=== PATIENT | male | born 1970 | race Caucasian/White ===

== ENCOUNTER 2021-12-22 11:05 | Emergency (ER) | payer OTHER ==
[2021-12-22 11:53] LABS: RED BLOOD COUNT 4.59 M/UL (4.20-5.50); WHITE BLOOD COUNT 8.3 K/UL (4.5-11.0)
[2021-12-22 12:43] LABS: BUN/CREATININE RATIO 8 (0-10)
== END 2021-12-22 15:38 | disposition home or self-care (01) ==
LOC: ER1 11:05
PROVIDERS: Emergency Medicine
DX: R07.9 Chest pain, unspecified (principal); Z01.812 Encounter for preprocedural laboratory examination
CPT/HCPCS: 71045; 80053; 84484; 85025; 93005; 99285; Q9967